=== PATIENT | male | born 1990 | race Hispanic/Latino ===

== ENCOUNTER 2019-07-13 08:02 | Emergency (ER) | payer OTHER ==
[2019-07-13] MEDS ORDERED: KETOROLAC TROMETHAMINE 60 MG/2 ML VIAL ONE (08:52)
[2019-07-13] MEDS ORDERED: HYDROCODONE/ACETAMINOPHEN 10/325 MG TAB ONE (08:53)
== END 2019-07-13 09:44 | disposition home or self-care (01) ==
LOC: EDH 08:02
DX: S33.5XXA Sprain of ligaments of lumbar spine, initial encounter (principal); Z72.0 Tobacco use; X50.0XXA Overexertion from strenuous movement or load, initial encounter; Y93.89 Activity, other specified; Y92.89 Other specified places as the place of occurrence of the external cause; Y99.8 Other external cause status
CPT/HCPCS: 72100; 96372; 99284; J1885

== ENCOUNTER 2020-01-22 01:48 | Emergency (ER) | payer OTHER ==
[2020-01-22] MEDS ORDERED: KETOROLAC TROMETHAMINE 15MG/ML ONE (02:20)
[2020-01-22] MEDS ORDERED: DIAZEPAM 5 MG TABLET ONE (02:21)
== END 2020-01-22 02:55 | disposition home or self-care (01) ==
LOC: EDH 01:48
DX: T14.8XXA Other injury of unspecified body region, initial encounter (principal); M54.6 Pain in thoracic spine; Z72.0 Tobacco use; X58.XXXA Exposure to other specified factors, initial encounter; Y93.89 Activity, other specified; Y92.89 Other specified places as the place of occurrence of the external cause; Y99.8 Other external cause status
CPT/HCPCS: 71045; 93005; 96372; 99283; J1885